=== PATIENT | female | born 1995 ===

== ENCOUNTER → 2021-07-08 13:45 | Outpatient (CLI) | payer BC, SELFPAY ==
--- NOTE | ~2021-07-08 | US_ITS ---
US OB /maternal detail DATE: 07/08/2021 14:32 INDICATION: screening TECHNIQUE: Real-time imaging and Doppler analysis COMPARISON: None FINDINGS: Live mcnamara intrauterine gestation, fetus in vertex presentation. Anterior placenta, lower margin 5.4 cm above the internal os. Subjectively normal amount of amniotic fluid. ventricles, choroid plexus, cerebellum and cisterna magna appear normal. limited normal. spine appears normal on transverse and longitudinal views. 4 chamber feta l heart and normal left and right ventricular outflow tracts. diaphragm is intact. Fluid is dem onstrated in the stomach and urinary bladder. No evidence of hydronephrosis. Three-vessel umbilical cord with normal insertion at abdominal wall. extremities are demonstrated. Biparietal diameter 5.31 cm; 22 weeks 1 day Head circumference 19.98 cm; 22 weeks 1 day Abdominal circumference 16.96 cm; 22 weeks Femur length 4.03 cm; 23 weeks Composite age by [facility]lock formula is 22 weeks 2 days +/- 1 week 4 day with THEO of 11/09/2021, compared to 11/11/2021 by LMP. Estimated weight is 500.2 +/- 75 g Estimated weight-GP: 64.6% Head circumference/abdominal circumference 1.18, within normal range of 1.05-1.22 Femur length/abdominal circumference 23.77, within normal range of 20.00-24.00 Femur length/head circumference 20.18, within normal range of 18.63-20.37 IMPRESSION: Normal anatomy screen Estimated gestational age is 22 weeks 2 days +/- 1 week 4 days with THEO of 11/09/2021 Reviewed, dictated and finalized at [facility]. Reviewed, dictated and finalized at [facility].
== END ==
PROVIDERS: Visit Provider Obstetrics & Gynecology Gynecologic Oncology
DX: Z36.9 Encounter for antenatal screening, unspecified (principal); Z3A.22 22 weeks gestation of pregnancy
CPT/HCPCS: 76805